=== PATIENT | female | born 1985 ===

== ENCOUNTER 2017-03-19 20:57 | Inpatient (IN) | payer OTHER ==
[~2017-03-19] VITALS: Ht 165.1 cm; Wt 53.5 kg
[~2017-03-19 20:57] MED LIST: ALLA20GE TP; Bupropion Hcl PO; IBUP-1953 PO; NORE1TAB93 PO; Sertraline Hcl PO; TRAZ-147 PO
[2017-03-19] MEDS ORDERED: SERT100T PO (21:56)
[2017-03-19] MEDS ORDERED: BUPR100T5 PO (21:56)
[2017-03-19] MEDS ORDERED: TRAZ-147 PO (21:56)
[2017-03-19] MEDS ORDERED: MAG HYDROX/AL HYDROX/SIMETH 30 ML LIQUID UDC PO PRN (22:00)
[2017-03-19] MEDS ORDERED: ACETAMINOPHEN 325 MG TABLET PO PRN (22:00)
[2017-03-19] MEDS ORDERED: LOPERAMIDE HCL 2 MG CAPSULE PO PRN ×2 (22:00)
[2017-03-19] MEDS ORDERED: METHOCARBAMOL 750 MG TABLET PO PRN (22:00)
[2017-03-19] MEDS ORDERED: ONDANSETRON 4 MG/2 ML VIAL IM PRN (22:00)
[2017-03-19] MEDS ORDERED: DICYCLOMINE HCL 20 MG TABLET PO PRN (22:00)
[2017-03-19] MEDS ORDERED: LORAZEPAM 1 MG TABLET PO PRN (22:00)
[2017-03-19] MEDS ORDERED: LORAZEPAM 2 MG/1 ML VIAL IM PRN (22:00)
[2017-03-19] MEDS ORDERED: MIRALAX 17 GM POWD.PACK PO PRN (22:00)
[2017-03-19] MEDS ORDERED: diphenhydrAMINE 50 MG CAPSULE PO PRN (22:00)
[2017-03-19] MEDS ORDERED: DOCUSATE SODIUM 250 MG CAPSULE PO PRN (22:00)
[2017-03-19] MEDS ORDERED: ONDANSETRON ODT 4 MG TAB.RAPDIS SL PRN (22:00)
[2017-03-19] MEDS ORDERED: BUPRENORPHINE HCL 2 MG TAB.SUBL SL PRN (22:00)
[2017-03-19] MEDS ORDERED: CLONIDINE HCL 0.1 MG TABLET PO PRN (22:00)
[2017-03-19] MEDS ORDERED: MAGNESIUM HYDROXIDE 30 ML LIQUID UDC PO PRN (22:00)
[2017-03-19 22:02] LABS: *URINE HCG, QUAL NEGATIVE (NEGATIVE)
[2017-03-19 22:13] LABS: *AMPHETAMINE, URINE POSITIVE (NEGATIVE); *BARBITURATE, URINE POSITIVE (NEGATIVE); *CANNABINOID, URINE NEGATIVE (NEGATIVE); *COCCAINE, URINE NEGATIVE (NEGATIVE); *OPIATE, URINE POSITIVE (NEGATIVE); *PHENCYCLIDINE SCREEN,URINE NEGATIVE (NEGATIVE)
[2017-03-19] MEDS ORDERED: LORAZEPAM 1 MG TABLET PO SCH (23:00)
[2017-03-19 23:21] LABS: BASOPHILS % (AUTO) 0.3 % (0.0-2.0); EOSINOPHILS # (AUTO) 0.1 K/uL (0.0-0.7); HEMATOCRIT 36.2 % (31.2-41.9); HEMOGLOBIN 12.5 g/dL (10.9-14.3); LYMPHOCYTES # (AUTO) 2.4 K/uL (20.0-40.0); LYMPHOCYTES % (AUTO) 33.3 % (20.5-51.5); MEAN CORPUSCULAR HEMOGLOBIN 31.3 uug (24.7-32.8); MEAN CORPUSCULAR HGB CONC 35 g/dL (32.3-35.6); MEAN CORPUSCULAR VOLUME 90.4 fL (75.5-95.3); MONOCYTES % (AUTO) 13.2 % (0.0-11.0); NEUTROPHILS # (AUTO) 3.7 K/uL (1.8-8.9); NEUTROPHILS % (AUTO) 51.2 % (38.5-71.5); PLATELET COUNT (AUTO) 281 K/uL (179-408); WHITE BLOOD COUNT (AUTO) 7.2 K/uL (3.8-11.8)
[2017-03-19 23:30] LABS: ETHANOL < 3 MG/DL (0-0)
[2017-03-19 23:33] LABS: ALANINE AMINOTRANSFERASE 33 U/L (14-59); ALKALINE PHOSPHATASE 83 U/L (50-136); ASPARTATE AMINOTRANSFERASE 28 U/L (15-37); BILIRUBIN,TOTAL 0.2 mg/dL (0.2-1.0); CARBON DIOXIDE 26 mmol/L (21-32); CHLORIDE 98 mmol/L (98-107); CREATININE 0.8 mg/dL (0.6-1.3); GLUCOSE 92 mg/dL (74-106); MAGNESIUM 1.9 mg/dL (1.8-2.4); POTASSIUM 3.7 mmol/L (3.5-5.1); TOTAL PROTEIN, SERUM 7.8 g/dL (6.4-8.2); UREA NITROGEN, BLOOD 11 mg/dL (7-18)
[2017-03-19] MEDS ORDERED: LORAZEPAM 1 MG TABLET ONE (23:40)
[2017-03-20] VITALS: BP 120/76
[2017-03-20] MEDS ORDERED: NEOM14.216 TP (00:32)
[2017-03-20] MEDS ORDERED: SULF1TAB48 PO (00:32)
[2017-03-20] MEDS: IBUPROFEN 600 MG TABLET PO PRN (00:56)
[2017-03-20] MEDS: LORAZEPAM 1 MG TABLET PO PRN ×3 (00:57→05:24)
[2017-03-20] MEDS ORDERED: LORAZEPAM 1 MG TABLET ONE ×3 (01:09→05:34)
[2017-03-20] MEDS ORDERED: IBUPROFEN 600 MG TABLET ONE (01:09)
[2017-03-20] MEDS ORDERED: diphenhydrAMINE 50 MG CAPSULE ONE (01:09)
[2017-03-20] MEDS ORDERED: CLONIDINE HCL 0.1 MG TABLET ONE (03:07)
[2017-03-20] MEDS ORDERED: BUPRENORPHINE HCL 2 MG TAB.SUBL SL ONE (03:08)
[2017-03-20 04:00] VITALS: BP 114/75
[2017-03-20] MEDS ORDERED: METHOCARBAMOL 750 MG TABLET ONE (05:34)
[2017-03-20] MEDS ORDERED: DIVALPROEX 500 MG TABLET.DR PO ONE (06:45)
[2017-03-20] MEDS ORDERED: OLANZAPINE ZYDIS 5 MG TAB.RAPDIS PO ONE (06:45)
[2017-03-20] MEDS ORDERED: OLANZAPINE ZYDIS 5 MG TAB.RAPDIS ONE (06:59)
[2017-03-20] MEDS: BUPRENORPHINE HCL 2 MG TAB.SUBL SL SCH ×3 (08:14→21:00)
[2017-03-20 09:00] VITALS: BP 132/79
[2017-03-20] MEDS ORDERED: GABAPENTIN 300 MG CAPSULE PO SCH (09:00)
[2017-03-20] MEDS ORDERED: diphenhydrAMINE 50 MG/1 ML VIAL IM ONE (09:00)
[2017-03-20] MEDS ORDERED: TUBERCULIN,PURIF.PROT.DERIV. 5 TU/0.1 ML TEST ID ONE (09:00)
[2017-03-20] MEDS ORDERED: HALOPERIDOL LACTATE 5 MG/1 ML VIAL IM ONE (09:00)
[2017-03-20] MEDS ORDERED: INFLUENZA VACCINE 2017-2018 0.5 ML DISP.SYRIN IM ONE (10:00)
[2017-03-20] MEDS ORDERED: PNEUMOCOCCAL 23-VAL P-SAC VAC 0.5 ML VIAL IM ONE (10:00)
[2017-03-20] MEDS: GABAPENTIN 300 MG CAPSULE PO SCH ×2 (15:00→21:00)
[2017-03-20] MEDS ORDERED: TRAZODONE 100 MG TABLET PO PRN (17:00)
[2017-03-20] MEDS ORDERED: CLONIDINE HCL 0.1 MG TABLET PO SCH (21:00)
[2017-03-20] MEDS ORDERED: LORAZEPAM 1 MG TABLET PO SCH (21:00)
[2017-03-21] VITALS (8 sets, daily range): BP systolic 89–120; BP diastolic 52–74
[2017-03-21] MEDS: LORAZEPAM 1 MG TABLET PO SCH ×3 (08:49→21:20)
[2017-03-21] MEDS: GABAPENTIN 300 MG CAPSULE PO SCH ×2 (08:49→14:34)
[2017-03-21] MEDS ORDERED: PATIENT MAY USE OWN MED- MD OK PO SCH (09:00)
[2017-03-21] MEDS ORDERED: HYDROXYZINE PAMOATE 25 MG CAPSULE PO PRN (09:00)
[2017-03-21] MEDS ORDERED: BUPRENORPHINE HCL 2 MG TAB.SUBL SL SCH (09:00)
[2017-03-21 10:12] LABS: HEPATITIS B SURFACE AG Negative (Negative)
[2017-03-21] MEDS: BUPRENORPHINE HCL 2 MG TAB.SUBL SL SCH ×2 (14:37→21:19)
[2017-03-21] MEDS: buPROPion XL 150 MG TAB.SR.24H PO SCH (15:35)
[2017-03-21] MEDS: SERTRALINE HCL 100 MG TABLET PO SCH (15:35)
[2017-03-21] MEDS ORDERED: GABAPENTIN 300 MG CAPSULE PO SCH (21:00)
[2017-03-21] MEDS: CLONIDINE HCL 0.1 MG TABLET PO SCH (21:20)
[2017-03-22] VITALS (7 sets, daily range): BP systolic 91–114; BP diastolic 52–74
[2017-03-22] MEDS: GABAPENTIN 300 MG CAPSULE PO SCH ×3 (09:00→21:12)
[2017-03-22] MEDS: IBUPROFEN 600 MG TABLET PO PRN ×2 (09:48→21:19)
[2017-03-22] MEDS: buPROPion XL 150 MG TAB.SR.24H PO SCH (09:48)
[2017-03-22] MEDS: BUPRENORPHINE HCL 2 MG TAB.SUBL SL SCH ×3 (09:48→21:12)
[2017-03-22] MEDS: LORAZEPAM 1 MG TABLET PO SCH ×3 (09:48→21:12)
[2017-03-22] MEDS: CLONIDINE HCL 0.1 MG TABLET PO SCH ×2 (09:49→21:11)
[2017-03-22] MEDS: SERTRALINE HCL 100 MG TABLET PO SCH (09:49)
[2017-03-23 04:00] VITALS: BP 108/72
[2017-03-23 08:00] VITALS: BP 96/59
[2017-03-23] MEDS: SERTRALINE HCL 100 MG TABLET PO SCH (08:37)
[2017-03-23] MEDS: buPROPion XL 150 MG TAB.SR.24H PO SCH (08:37)
[2017-03-23] MEDS: CLONIDINE HCL 0.1 MG TABLET PO SCH ×3 (08:41→20:51)
[2017-03-23] MEDS ORDERED: LORAZEPAM 1 MG TABLET PO SCH (09:00)
[2017-03-23] MEDS: GABAPENTIN 300 MG CAPSULE PO SCH ×3 (09:00→21:00)
[2017-03-23] MEDS ORDERED: BUPRENORPHINE HCL 2 MG TAB.SUBL SL SCH (09:00)
[2017-03-23 12:00] VITALS: BP 106/56
[2017-03-23] MEDS ORDERED: CLON0.1T14 PO (14:54)
[2017-03-23] MEDS ORDERED: DICY20TA28 PO (14:54)
[2017-03-23] MEDS ORDERED: GABA-534 PO (14:54)
[2017-03-23] MEDS ORDERED: METH-406 PO (14:54)
[2017-03-23] MEDS ORDERED: IBUP-1955 PO (14:54)
[2017-03-23] MEDS ORDERED: HYDR-3895 PO (14:54)
[2017-03-23 16:00] VITALS: BP 98/48
[2017-03-23 20:00] VITALS: BP 119/83
[2017-03-23] MEDS: IBUPROFEN 600 MG TABLET PO PRN (20:50)
[2017-03-24 04:00] VITALS: BP 98/56
[2017-03-24 08:00] VITALS: BP 101/70
[2017-03-24 08:30] VITALS: BP 101/70
[2017-03-24] MEDS: GABAPENTIN 300 MG CAPSULE PO SCH (08:30)
[2017-03-24] MEDS: SERTRALINE HCL 100 MG TABLET PO SCH (08:30)
[2017-03-24] MEDS: buPROPion XL 150 MG TAB.SR.24H PO SCH (08:30)
[2017-03-24] MEDS: CLONIDINE HCL 0.1 MG TABLET PO SCH (08:30)
== END 2017-03-24 09:37 | disposition other institution (70) | DRG 895 ==
LOC: SRC 20:57
PROVIDERS: ADMIT Internal Medicine; ATTEND Internal Medicine
PROC: HZ2ZZZZ Detoxification Services for Substance Abuse Treatment (ICD-10-PCS; principal; 2017-03-19)
PROC: HZ31ZZZ Individual Counseling for Substance Abuse Treatment, Behavioral (ICD-10-PCS; 2017-03-21)
DX: F11.23 Opioid dependence with withdrawal (principal); Z86.74 Personal history of sudden cardiac arrest; F23 Brief psychotic disorder; Z81.1 Family history of alcohol abuse and dependence; Z82.49 Family history of ischemic heart disease and other diseases of the circulatory system; Z91.89 Other specified personal risk factors, not elsewhere classified; F13.239 Sedative, hypnotic or anxiolytic dependence with withdrawal, unspecified; Z88.0 Allergy status to penicillin; Z79.899 Other long term (current) drug therapy; Z59.0 Homelessness; G47.00 Insomnia, unspecified; F41.9 Anxiety disorder, unspecified; Z59.1 Inadequate housing; R01.1 Cardiac murmur, unspecified; F17.210 Nicotine dependence, cigarettes, uncomplicated; F15.10 Other stimulant abuse, uncomplicated; F32.9 Major depressive disorder, single episode, unspecified
CPT/HCPCS: 36415; 80307; 80324; 80345; 80361; 83735; 84703; 85025; 86592; 86705; 86803; 87340; 87806; A4663; G0480; J1200; J1630; Q0163

== ENCOUNTER 2017-07-19 17:17 | Emergency (ER) | payer OTHER ==
[~2017-07-19] VITALS: Ht 165.1 cm; Wt 54.4 kg
[~2017-07-19 17:17] MED LIST changes: -ALLA20GE TP; +BUPR100T5 PO; -Bupropion Hcl PO; +CLON0.1T14 PO; +DICY20TA28 PO; +GABA-534 PO; +HYDR-3895 PO; -IBUP-1953 PO; +IBUP-1955 PO; +METH-406 PO; +SERT100T PO; -Sertraline Hcl PO
--- NOTE | 2017-07-19 17:34 | NUR ---
Dr Stephens at the bedside for MSE.
[2017-07-19 17:39] LABS: *BILIRUBIN,URIN NEGATIVE (NEGATIVE); *BLOOD, URINE NEGATIVE (NEGATIVE); *CLARITY,URINE HAZY (CLEAR); *COLOR,URINE YELLOW (YELLOW); *KETONES,URINE NEGATIVE (NEGATIVE); *PROTEIN,URINE NEGATIVE (NEGATIVE); *UROBILINOGEN,URINE 0.2 E.U./dl (NORMAL); LEUKOCYTE ESTERASE ,URINE 1+ (NEGATIVE); NITRITE, URINE NEGATIVE (NEGATIVE); UGLUCOSE NEGATIVE (NEGATIVE)
[2017-07-19 17:41] LABS: *URINE HCG, QUAL NEGATIVE (NEGATIVE)
[2017-07-19 17:44] LABS: BACTERIA,URINE FEW /HPF (NONE SEEN); MUCUS,URINE FEW /LPF (0-FEW); RBC,URINE 0-3 /HPF (0-3); SQUAMOUS EPITHELIAL CELL,UR MODERATE /HPF (NONE SEEN); WBC,URINE 50-80 /HPF (0-3)
[2017-07-19] MEDS ORDERED: CEFTRIAXONE 500 MG VIAL ONE (17:45)
[2017-07-19] MEDS ORDERED: AZITHROMYCIN 250 MG TABLET ONE (17:45)
[2017-07-19] MEDS: AZITHROMYCIN 250 MG TABLET PO ONE (17:47)
[2017-07-19] MEDS: CEFTRIAXONE 500 MG VIAL IM ONE (17:47)
--- NOTE | 2017-07-19 17:52 | NUR ---
Patient discharged to home in stable conditon. Written and verbal after care instructions given. Patient verbalizes understanding of instructions.
[2017-07-19 17:55] VITALS: BP 103/68
== END 2017-07-19 17:55 | disposition home or self-care (01) ==
LOC: ER 17:18
DX: N39.0 Urinary tract infection, site not specified (principal); Z88.1 Allergy status to other antibiotic agents; Z79.1 Long term (current) use of non-steroidal anti-inflammatories (NSAID); Z79.891 Long term (current) use of opiate analgesic; Z79.899 Other long term (current) drug therapy
CPT/HCPCS: 81001; 84703; 87086; 96372; 99284; A4663; J0696; Q0144

== ENCOUNTER 2017-11-07 15:25 | Inpatient (IN) | payer OTHER ==
[~2017-11-07] VITALS: Ht 165.1 cm; Wt 54.0 kg
[~2017-11-07 15:25] MED LIST changes: -TRAZ-147 PO; +TRAZ-214 PO
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
[2017-11-07] MEDS ORDERED: MAGNESIUM HYDROXIDE 30 ML LIQUID UDC PO PRN (23:30)
[2017-11-07] MEDS ORDERED: DICYCLOMINE HCL 20 MG TABLET PO PRN (23:30)
[2017-11-07] MEDS ORDERED: MAG HYDROX/AL HYDROX/SIMETH 30 ML LIQUID UDC PO PRN (23:30)
[2017-11-07] MEDS ORDERED: BUPRENORPHINE HCL 2 MG TAB.SUBL SL PRN (23:30)
[2017-11-07] MEDS ORDERED: LOPERAMIDE HCL 2 MG CAPSULE PO PRN ×2 (23:30)
[2017-11-07] MEDS ORDERED: diphenhydrAMINE 50 MG CAPSULE PO PRN (23:30)
[2017-11-08 01:23] LABS: BASOPHILS # (AUTO) 0.1 K/uL (0.0-8.0); EOSINOPHILS # (AUTO) 0.8 K/uL (0.0-0.7); EOSINOPHILS % (AUTO) 12.1 % (0.0-7.0); HEMATOCRIT 32.2 % (31.2-41.9); HEMOGLOBIN 11.4 g/dL (10.9-14.3); LYMPHOCYTES # (AUTO) 2.5 K/uL (20.0-40.0); LYMPHOCYTES % (AUTO) 38.4 % (20.5-51.5); MEAN CORPUSCULAR HEMOGLOBIN 31.8 uug (24.7-32.8); MEAN CORPUSCULAR HGB CONC 35 g/dL (32.3-35.6); MEAN CORPUSCULAR VOLUME 89.8 fL (75.5-95.3); MONOCYTES # (AUTO) 0.6 K/uL (2.0-10.0); MONOCYTES % (AUTO) 9.9 % (0.0-11.0); NEUTROPHILS # (AUTO) 2.5 K/uL (1.8-8.9); NEUTROPHILS % (AUTO) 38.6 % (38.5-71.5); PLATELET COUNT (AUTO) 272 K/uL (179-408); RED BLOOD CELL COUNT(AUTO) 3.58 MIL/uL (3.63-4.92); WHITE BLOOD COUNT (AUTO) 6.4 K/uL (3.8-11.8)
[2017-11-08 01:28] LABS: ETHANOL < 3 MG/DL (0-0)
[2017-11-08 01:30] LABS: ALANINE AMINOTRANSFERASE 67 U/L (14-59); ALKALINE PHOSPHATASE 96 U/L (50-136); ASPARTATE AMINOTRANSFERASE 48 U/L (15-37); BILIRUBIN,TOTAL 0.3 mg/dL (0.2-1.0); CARBON DIOXIDE 26 mmol/L (21-32); CHLORIDE 100 mmol/L (98-107); CREATININE 0.7 mg/dL (0.6-1.3); GLUCOSE 98 mg/dL (74-106); MAGNESIUM 1.8 mg/dL (1.8-2.4); POTASSIUM 4.1 mmol/L (3.5-5.1); TOTAL PROTEIN, SERUM 7.6 g/dL (6.4-8.2); UREA NITROGEN, BLOOD 6 mg/dL (7-18)
[2017-11-08 01:36] LABS: *URINE HCG, QUAL NEGATIVE (NEGATIVE)
[2017-11-08 01:41] LABS: *AMPHETAMINE, URINE POSITIVE (NEGATIVE); *BARBITURATE, URINE NEGATIVE (NEGATIVE); *CANNABINOID, URINE NEGATIVE (NEGATIVE); *COCCAINE, URINE NEGATIVE (NEGATIVE); *OPIATE, URINE POSITIVE (NEGATIVE); *PHENCYCLIDINE SCREEN,URINE NEGATIVE (NEGATIVE)
[2017-11-08] MEDS: HYDROXYZINE PAMOATE 25 MG CAPSULE PO PRN ×2 (02:02→13:22)
[2017-11-08] MEDS: METHOCARBAMOL 750 MG TABLET PO PRN ×2 (02:03→12:19)
--- NOTE | 2017-11-08 02:03 | NUR ---
PRN Robaxin, Benadryl and Vistaril administration Patient anxious, restless, c/o muscle aches and intermittent perspiration. Patient requests for sleep aid.
--- NOTE | 2017-11-08 03:03 | NUR ---
PRN Robaxin, Vistaril and Benadryl re-assessment Patient lying in bed with eyes closed. Respiration even and unlabored. No facial grimacing. Will continue to monitor.
[2017-11-08 04:00] VITALS: BP 100/62
--- NOTE | 2017-11-08 04:00 | NUR ---
COWS and CIWA deferred Patient lying in bed with eyes closed. Respiration even and unlabored. Will continue to monitor.
[2017-11-08 04:59] LABS: THYROID STIMULATING HORMONE 1.659 mIU/mL (0.358-3.740)
--- NOTE | 2017-11-08 07:23 | NUR ---
End of shift note Patient slept 4 hours. Fluid intake 1,029 ml. Voided x 2. No BM. Patient was given PRN Robaxin for muscle aches, Vistaril for Anxiety and Benadryl for sleep. Safety measures in place. Call light in reach. Will continue to monitor.
--- NOTE | 2017-11-08 07:30 | NUR ---
Start Of Shift Report received from second shift supervisor nurse. Patient is a 32-year old female admitted to [facility] for medically supervised withdrawal from Opiates and Benzodiazepines. Pt is placed on a Phenobarbital taper . Upon start of shift pt noted laying in her bed with her eyes closed resting, breathing even and unlabored. Pt's room appears unorganized and messy, pt has clothes thrown around the room, with empty bottles and candy wraps around the room, pt is odorous and disheveled . Pt appears anxious, sweaty and flushed. During assessment, pt is AOx4. Lung sounds clear bilaterally. Radial pulse is regular and non-bounding. Abdomen soft and non-tender. Pt's skin is warm and intact. Pt denies any pain at the moment. Encouraged pt to drink plenty of fluids to keep hydrated and help the detox process. Bed in lowest position. Pt c/o being anxious, stating I NEED MY MEDICATION NOW I AM NOT FEELING GOOD Pt got PRN Robaxin Benadryl and Vistaril last night which was effective per second shift supervisor nurse. Side rails up x2. Call light functioning and within reach. All needs attended and met. Will continue to monitor.
[2017-11-08 08:00] VITALS: BP 108/65
[2017-11-08] MEDS: PHENOBARBITAL 60 MG TABLET PO SCH ×4 (09:00→20:35)
[2017-11-08] MEDS ORDERED: TUBERCULIN,PURIF.PROT.DERIV. 5 TU/0.1 ML TEST ID ONE (09:00)
[2017-11-08] MEDS: MULTIVITAMINS,THERAPEUTIC TABLET PO SCH (09:00)
[2017-11-08 12:00] VITALS: BP 125/76
[2017-11-08] MEDS: LORAZEPAM 1 MG TABLET PO PRN ×2 (13:22→22:36)
--- NOTE | 2017-11-08 13:22 | NUR ---
PRN MEDICATION Pt c/o anxiety and chills presented with agitation sweats and tremors, upon assessment pt had a CIWA score of 17 and a COWS score of 10 pt also c/o pain all over the body, PRN Motrin 600mg PO, Ativan 2mg PO, Vistaril 50mg PO and Clonidine 0.1mg PO administered, all needs met will continue to monitor.
[2017-11-08] MEDS: CLONIDINE HCL 0.1 MG TABLET PO PRN ×2 (13:23→20:35)
[2017-11-08] MEDS: IBUPROFEN 600 MG TABLET PO PRN ×2 (13:28→22:41)
--- NOTE | 2017-11-08 14:22 | NUR ---
PRN REASSESSMENT Medication was effective evidenced by pt laying in bed with eyes closed even non-labored breathing. All needs met will continue to monitor.
[2017-11-08] MEDS ORDERED: QUETIAPINE FUMARATE 25 MG TABLET PO PRN (15:45)
[2017-11-08 16:00] VITALS: BP 124/73
--- NOTE | 2017-11-08 19:30 | NUR ---
START OF SHIFT Pt is a 32 y/o female admitted on 11/07/17 for opiates and benzo withdrawal. Pt placed on a 6 day Phenobarbital taper, tolerating well. Last CIWA 13 COWS 9. PRN Clonidine 0.1mg Ativan 2mg Vistaril 50mg and Motrin 600mg were administered during day shift. Upon assessment Pt was found laying in bed with eyes closed, respirations even and unlabored. Medications due. Safety measures in place. Call light within reach. Will continue to monitor.
--- NOTE | 2017-11-08 19:41 | NUR ---
End of shift Report given to hotel night auditor nurse plan of care followed vital signs monitored closely Q4H. Withdrawal symptoms were closely monitored, medication given as scheduled. Initial CIWA 12 COWS 7. Pt encouraged adequate PO fluid intake as tolerated. Pt presented with sweats, flushed face, anxiety some agitation and yawning during the day. Pt received her scheduled taper medication as ordered. Pt received PRN Clonidine Ativan 2mg Vistaril 50mg and Motrin 600mg for anxiety and general body aches medication was effective. Last CIWA 13 COWS 9. Pt reported that her taper medications have been working well at controlling her withdrawal symptoms. Pt ate all of her meals, pt attended all groups and activities to learn new coping skills to prevent relapse. Pt denied any SI/HI. All safety measures in place, bed in lowest locked position, call light within reach. All needs met and attended.
[2017-11-08 20:00] VITALS: BP 110/65
--- NOTE | 2017-11-08 20:00 | NUR ---
CLIFWA 13 COWS 11 Pt presents with anxiety, agitation, general body pain, stuffy, nose, headache, tremors, restlessness, and flushed and clammy skin.Safety measures in place. Call light within reach. Will continue to monitor.
--- NOTE | 2017-11-08 20:35 | NUR ---
PRN CLONIDINE ADMINISTRATION Pt complains of increased agitation and anxiety. PRN Clonidine was administered per order. Safety measures in place. Call light within reach. Will continue to monitor.
--- NOTE | 2017-11-08 21:35 | NUR ---
PRN CLONIDINE REASSESSMENT Pt found in bed with eyes closed. Pt's respirations even and unlabored. Medication noted effective. Safety measures in place. Call light within reach. Will continue to monitor.
[2017-11-08] MEDS: TRAZODONE 100 MG TABLET PO SCH (22:38)
--- NOTE | 2017-11-08 22:38 | NUR ---
SCHEDULED TRAZODONE ADMINISTRATION Pt requested scheduled Trazodone to be given at this time. Pt refused medication at 2100. Pt stated, " Its to early to take this medication, come back later." Safety measures in place. Call light within reach. Will continue to monitor.
--- NOTE | 2017-11-08 22:41 | NUR ---
PRN ATIVAN 2 MG PO AND MOTRIN ADMINISTRATION Pt complains of increased anxiety, agitation, restlessness, and generalized body pain. PRN medication administered per order. Safety measures in place. Call light within reach. Will continue to monitor.
--- NOTE | 2017-11-08 23:41 | NUR ---
PRN ATIVAN 2 MG PO AND MOTRIN REASSESSMENT Pt found in bed with eyes closed. Respiration even and unlabored. Medication noted effective with withdrawal S/S. Safety measures in place. Call light within reach. Will continue to monitor.
--- NOTE | 2017-11-09 | NUR ---
COWS/CIWA DEFERRED AND VITAL SIGNS REFUSED Patient is noted in bed with eyes closed. Breathing even and non labored. COWS/CIWA and vital signs not able to be completed per order. Safety measures in place. Call light within reach. Will continue to monitor.
--- NOTE | 2017-11-09 07:31 | NUR ---
END OF SHIFT Pt is a 32 y/o female admitted on 11/07/17 for opiates and benzo withdrawal. Pt placed on a 6 day Phenobarbital taper, tolerating well. Pt presented with anxiety, agitation, restlessness, lethargic, slumped posture, isolative, and withdrawn. PRN Ativan, Clonidine, and Motrin was administered, effective with S/S of withdrawal SAMSON Pt sleeping 9 hours. Last CIWA 13 COWS 11. Pt slept 9 hours. Intake 8654 ml, void x 2, stool x 0. Safety measures in place. Call light within reach. Pts needs have been met. Endorsed to day shift.
--- NOTE | 2017-11-09 07:35 | NUR ---
START OF SHIFT Pt is a 32 yr old female, admitted on 11/07/17 fr Benzo/Opiate withdrawal and is on 6 day Phenobarbital taper as ordered. Received report from lieutenant shift supervisor nurse. Pt received Ativan PRN, Clonidine PRN and Motrin PRN during the night. Medication was effective. last CIWA score 13 and COWS score was 11. Pt slept for 9 hrs and remains in bed sleeping with respirations even and unlabored. Skin is intact, warm and clammy to touch. Pt's room is noted with multiple open food wrappers and open bottles of fluid at bedside table. Pt is on fall and seizures precautions. Call light is within reach. Will continue to monitor.
[2017-11-09 08:00] VITALS: BP 92/61
--- NOTE | 2017-11-09 08:00 | NUR ---
COWS AND CIWA ASSESSMENT DEFERRED Pt is in bed sleeping with respirations even and unlabored. RR is 14. VS are 92/61, P 72, and O2 100%. Pt is noted with restless legs. Artificial Flowers Supervisor attempted to wake up pt but she was unable to wake up. Skin is warm and clammy to touch. Safety precautions observed. will continue to monitor.
[2017-11-09] MEDS: MULTIVITAMINS,THERAPEUTIC TABLET PO SCH (10:00)
[2017-11-09] MEDS: SERTRALINE HCL 100 MG TABLET PO SCH ×2 (10:00→11:13)
[2017-11-09] MEDS: PHENOBARBITAL 60 MG TABLET PO SCH ×4 (10:00→22:00)
--- NOTE | 2017-11-09 10:00 | NUR ---
MEDICATION HELD Phenobarbital 60mg PO, Zoloft 100mg PO and a Multivitamin 1 tab as scheduled at 0900 was held due to pt is too sedated. Rotor Blade Installer attempted several time to wake up the pt but she was unable to wake up. RR is 14. Pt is noted with restless legs. Skin is warm and clammy to touch. MD was made aware. Safety precautions observed. Will continue to monitor.
[2017-11-09 11:06] LABS: HEPATITIS B SURFACE AG Negative (Negative)
--- NOTE | 2017-11-09 11:15 | NUR ---
MD COMMUNICATION Pt woke up at this time stating, "Can I have my meds". Phenobarbital 60mg PO and Zoloft 100mg PO as scheduled at 0900 was held due to Pt was too sedated. Report to Dr. Nelson, Per Dr. Omar luther to late administer Phenobarbital 60mg and Zoloft 100mg PO as ordered. Medication was administered and manuel well. Encouraged increase fluid intake. Will continue to monitor.
[2017-11-09 12:10] VITALS: BP 94/55
--- NOTE | 2017-11-09 15:00 | NUR ---
COMMUNICATION pt was seen and examined by Dr. Nelson. Received new order for 4 day Subutex taper starting today on 11/09/17. New order was noted and carried out. Last COWS score was 10 and CIWA score was 11 at 1245. Will continue to monitor.
[2017-11-09] MEDS ORDERED: 4 DAY TAPER BUPRENORPHINE -SERENITY PROTOCOL SL PRN (15:15)
[2017-11-09] MEDS: TOPIRAMATE 25 MG TABLET PO SCH ×2 (16:03→22:00)
[2017-11-09] MEDS: BUPRENORPHINE HCL 2 MG TAB.SUBL SL SCH ×2 (16:03→22:00)
[2017-11-09 16:10] VITALS: BP 104/60
[2017-11-09] MEDS ORDERED: METRONIDAZOLE 500 MG TABLET PO ONE (18:45)
[2017-11-09 20:15] VITALS: BP 89/49
--- NOTE | 2017-11-09 20:16 | NUR ---
CIWA AND COWS ASSESSMENT DEFERRED Pt is currently in bed sleeping with respirations even and unlabored. RR is 16. COWS/CIWA assessment is deferred at this time. Will continue to monitor.
[2017-11-09] MEDS: TRAZODONE 100 MG TABLET PO SCH (22:00)
[2017-11-09] MEDS: PRAZOSIN HCL 1 MG CAPSULE PO SCH (22:00)
--- NOTE | 2017-11-09 22:28 | NUR ---
MEDICATION HELD Phenobarbital 60mg PO, Subutex 4mg SL, Topamax 50mg PO, Minipress 1mg PO and Trazodone 100mg PO as scheduled at 2100 was held due to pt was too sedated. Moving Consultant attempted several times to wake up pt, pt was arousable to name and touch but still was unable to be woken up. RR is 16. Skin is warm and clammy to touch. Safety precautions observed. Will continue to monitor.
[2017-11-10] VITALS: BP 98/67
--- NOTE | 2017-11-10 | NUR ---
CIWA/COWS and VITAL SIGN ASSESSMENT DEFERRED Pt is currently in bed sleeping with respirations even and unlabored. RR is 14. COWS/CIWA assessment is deferred at this time. Safety precautions observed. Will continue to monitor.
--- NOTE | 2017-11-10 00:12 | NUR ---
END OF SHIFT Pt is a 32 female, AA&Ox3. Pt was admitted on 11/07/17 for Benzo/Opiate withdrawal and is on 6 day Phenobarbital taper and 4 day Subutex taper as ordered. Pt has been observed with increase fatigue and drowsiness and remained in bed throughout the day. While awake, Pt would c/o anxiety, agitation, muscle aches, stuffy nose, sweats, chills and headache. No PRNs were given during the day. Pt did received Flagyl 2000mg one time for yeast infection. Medication manuel well. Pt was encouraged increase fluid intake for hydration. All scheduled 2100 medications was held due to pt was too sedated. Last COWS score was 8 and CIWA score was 9 at 1611. Safety precautions observed. Endorsed to RN nurse to continue with care.
--- NOTE | 2017-11-10 00:13 | NUR ---
START OF SHIFT Pt is a 32 y/o female admitted on 11/07/17 for benzo and opiate withdrawal. Pt was also using methamphetamine. Pt is on a 6 day Phenobarbital and 4 day Subutex taper, tolerating well. Last CIWA COWS 8 and CIWA 9 at 1600. 2100 COWS and CIWA deferred and 2100 scheduled medications non-administered d/t pt sleeping. Upon assessment pt sleeping. Endorsement from day shift nurse at 0012. Safety measures in place. Will continue to monitor.
[2017-11-10] MEDS: IBUPROFEN 600 MG TABLET PO PRN ×3 (00:58→22:10)
--- NOTE | 2017-11-10 00:58 | NUR ---
PHENOBARBITAL 60 MG X 1, SUBUTEX 4 MG X 1 AND MOTRIN ADMINISTRATION Pt woke up and stated, "I feel like shit. I need meds." COWS 18 and CIWA 21. One time orders for Phenobarbital and Subutex administered. 2100 meds held d/t pt sleeping. Pt presents with anxiety, agitation, dilated pupils, goosebumps, body aches 8/10, stomach cramps, stuffy nose, increased HR, hot and cold sweats, chills, headache, sensitivity to light, sensitivity to sounds, and pins and needles sensations in all extremities. Pt refused Bentyl and Robaxin. Pt stated, "Robaxin gives me bad constipation." Safety measures in place. Call light within reach. Will continue to monitor.
[2017-11-10] MEDS ORDERED: PHENOBARBITAL 60 MG TABLET PO ONE (01:00)
[2017-11-10] MEDS ORDERED: BUPRENORPHINE HCL 2 MG TAB.SUBL SL ONE (01:00)
--- NOTE | 2017-11-10 01:58 | NUR ---
PRN PHENOBARBITAL, SUBUTEX, AND MOTRIN REASSESSMENT Pt laying in bed with eyes closed, medications noted effective. Respirations even and unlabored. Safety measures in place. Call light within reach. Will continue to monitor.
--- NOTE | 2017-11-10 04:00 | NUR ---
COWS/CIWA DEFERRED AND VITALS REFUSED Pt laying in bed with eyes closed, COWS/CIWA deferred, to be assessed when pt is awake per orders. Vitals refused. Respirations even and unlabored. Safety measures in place. Call light within reach. Will continue to monitor.
[2017-11-10 06:30] VITALS: BP 101/68
--- NOTE | 2017-11-10 07:30 | NUR ---
END OF SHIFT Pt is a 32 y/o female admitted on 11/07/17 for benzo and opiate withdrawal. Pt was also using methamphetamine. Pt is on a 6 day Phenobarbital and 4 day Subutex taper, tolerating well. Pt woke up agitated about not getting her scheduled medications. Pt was not administered her 2100 dose d/t sleeping and woke up near 0100. Pt presented with anxiety, agitation, dilated pupils, goosebumps, body aches 8/10, stomach cramps, stuffy nose, increased HR, hot and cold sweats, chills, headache, sensitivity to light, sensitivity to sounds, difficulty staying asleep, disheveled appearance, unkempt room, and pins and needles sensations in all extremities. COWS 18 and CIWA 21 and was ordered Phenobarbital 60 mg x 1 and Subutex 4 mg x 1. PRN Motrin administered for headache. Pt refused Bentyl and Robaxin. Last COWS 18 and CIWA 21. Pt slept 8 hours. Intake 2892 ml, void x 4, stool x 0. Safety measures in place. Call light within reach. Pts needs have been met. Endorsed to day shift nurse.
--- NOTE | 2017-11-10 07:30 | NUR ---
Start Of Shift: Patient is a 32 yr old female who was admitted to [facility] on 11/07/17 for a medically supervised withdrawal from Benzodiazepines ( Xanax, Valium, Klonopin) and Opiates ( Heroin IV and Fentanyl IV) also abused amphetamines and Cocaine, she has been placed on a 6 day Phenobarbital and 4 day Subutex taper. PRN Motrin was given on PM shift, her last COWS was 18 and CIWA 21 and she slept for 8 hours. She is in bed asleep at this time, breathing even and unlabored, side rails up x2. Continue to follow MD plan of care and offer support and encouragement.
[2017-11-10 08:00] VITALS: BP 92/60
--- NOTE | 2017-11-10 08:00 | NUR ---
COWS 14/ CIWA 18 Withdrawal symptoms present as increased anxiety and agitation, lethargy, restlessness, warm clammy skin, stuffy nose, abdominal pain, constipation and irritability. Scheduled phenobarbital and Subutex to be given along with PRN's
[2017-11-10] MEDS: SERTRALINE HCL 100 MG TABLET PO SCH (08:17)
[2017-11-10] MEDS: TOPIRAMATE 25 MG TABLET PO SCH ×2 (08:17→21:38)
[2017-11-10] MEDS: MULTIVITAMINS,THERAPEUTIC TABLET PO SCH (08:17)
[2017-11-10] MEDS: PHENOBARBITAL 60 MG TABLET PO SCH ×4 (08:18→21:40)
[2017-11-10] MEDS: CLONIDINE HCL 0.1 MG TABLET PO PRN ×2 (08:57→16:31)
[2017-11-10] MEDS ORDERED: BUPRENORPHINE HCL 2 MG TAB.SUBL SL SCH (09:00)
--- NOTE | 2017-11-10 09:00 | NUR ---
PRN Clonidine 0.1mg PO given for increased anxiety/agitation Motrin 600mg PO given for muscle aches 05/30
--- NOTE | 2017-11-10 10:00 | NUR ---
PRN Reassess Patient states Clonidine has helped decrease her anxiety Motrin has moderately helped with muscle aches, pain level 3/10
[2017-11-10 12:00] VITALS: BP 146/95
--- NOTE | 2017-11-10 12:00 | NUR ---
COWS 14/ CIWA 17 Withdrawal symptoms present as increased anxiety and agitation, lethargy, restlessness, warm clammy skin, stuffy nose, abdominal pain, constipation and irritability. Scheduled phenobarbital given, PRN medications offered for S/S of withdrawal but pt refused
[2017-11-10] MEDS: BACLOFEN 10 MG TABLET PO PRN ×2 (14:43→22:09)
[2017-11-10] MEDS: BUPRENORPHINE HCL 2 MG TAB.SUBL SL SCH ×2 (14:43→21:40)
[2017-11-10] MEDS: ACIDOPHILUS/BULGARICUS CHEW TAB PO SCH ×2 (14:43→21:41)
--- NOTE | 2017-11-10 14:45 | NUR ---
PRN Baclofen 10mg PO given for complaints of muscle spasms, will reassess
--- NOTE | 2017-11-10 15:45 | NUR ---
PRN Reassess Patient states Baclofen was moderately effective in relieving muscle aches/spasms
[2017-11-10 16:00] VITALS: BP 100/61
--- NOTE | 2017-11-10 16:00 | NUR ---
COWS 16 CIWA 18 Withdrawal symptoms present as restlessness, fidgeting, lethargy, stuffy nose, emotionally volatile, mood swings, muscle aches and spasms. Scheduled Pheno and Subutex given within last hour, Baclofen PRN given.
--- NOTE | 2017-11-10 16:30 | NUR ---
PRN Clonidine 0.1mg PO given for complaints of increased anxiety/agitation
--- NOTE | 2017-11-10 17:30 | NUR ---
PRN Reassess Patient took a shower and states she feels better, clonidine has been effective in reducing anxiety.
--- NOTE | 2017-11-10 19:12 | NUR ---
End Of Shift Patient is a 32 yr old female who was admitted to [facility] on 11/07/17 for a medically supervised withdrawal from Benzodiazepines ( Klonopin, Xanax and Valium), Opiates ( heroin and Fentanyl),she has been placed on a 6 day Phenobarbital taper and 4 day Subutex taper. She has been emotionally volatile today, difficulty thinking clearly, teary , anxious, generalized body aches and restless. She is disheveled and unkempt. PRN medications given this shift : Clonidine x2 , Motrin and Baclofen. She had a fluid intake of 3000ML, 10 Voids and 0 BM, her last COWS 16 was and CIWA 18 @ 1600. She attended AM group therapy and is interacting with her peers. Continue to follow MD plan of care and offer support as needed. Endorsed to caustic cresylate shift superintendent nurse.
--- NOTE | 2017-11-10 19:30 | NUR ---
Start of shift Patient is a 32 year old female admitted on 11/07/2017. Patient was admitted for medically supervised withdrawal from Benzo's and Opiates. Patient is on a 6 day Phenobarbital taper and 4 day Subutex taper. Patients last COWS is 16 and CIWA 18. Patient had PRN Clonidine, Motrin and Baclofen during day shift. Patient is on Fall and Seizure precautions. Reviewed 2100 medications with patient and verbalized understanding of plan of care. Patient also requested Motrin and Baclofen along with 2100 medications. Patient is noted depressed, withdrawn, and disheveled. Safety measures in place, bed locked in low position, side rails up x2, call light within reach. Will continue to monitor.
[2017-11-10 20:00] VITALS: BP 97/51
--- NOTE | 2017-11-10 20:00 | NUR ---
CIWA and COWS Assessment Patient is presenting with s/s of withdrawal: tremors, pins and needles in fingers, body aches, stomach cramps, sweats and chills and anxiety. Patients COWS=11 and CIWA =13. Respirations are even and unlabored. Safety measure in place. Will continue to monitor.
[2017-11-10] MEDS: NICOTINE 21 MG/24HR PATCH TD SCH (21:38)
[2017-11-10] MEDS: PRAZOSIN HCL 1 MG CAPSULE PO SCH (21:39)
[2017-11-10] MEDS: NICOTINE POLACRILEX 4 MG GUM-PK OF TEN BC PRN (21:40)
[2017-11-10] MEDS: TRAZODONE 100 MG TABLET PO SCH (21:41)
--- NOTE | 2017-11-10 22:10 | NUR ---
PRN Motrin 600mg and Lioresal 10mg Patient is experiencing back and right arm pain. Gave patient PRN Motrin 600mg and Lioresal 10mg. Patient tolerated well and will continue to monitor for adverse effects. Safety measures in place, bed locked in low position, side rails up x2, call light within reach. Will continue to monitor.
--- NOTE | 2017-11-10 23:10 | NUR ---
PRN Motrin 600mg and Lioresal 10mg Reassessment Patient was noted in bed lying with eyes closed. Respirations are even and unlabored. Medication noted to be effective. Safety measures in place. Will continue to monitor.
[2017-11-11] VITALS: BP 92/55
--- NOTE | 2017-11-11 | NUR ---
CIWA and COWS Deferred Patient was noted in bed resting with eyes closed, breathing even and unlabored. Per protocol CIWA and COWS is to be assessed while awake. Safety measures in place. Will continue to monitor. Addendum: 11/11/17 at 0215 by BHAVIN CARTER RN Input twice by accident.
[2017-11-11 04:00] VITALS: BP 98/66
--- NOTE | 2017-11-11 04:00 | NUR ---
CIWA and COWS Deferred Patient was noted in bed resting with eyes closed, breathing even and unlabored. Per protocol CIWA and COWS is to be assessed while awake. Safety measures in place. Will continue to monitor.
--- NOTE | 2017-11-11 07:01 | NUR ---
End of shift Patient is a 32 year old female admitted on 11/07/2017. Patient was admitted for medically supervised withdrawal from Benzo's and Opiates. Patient is on a 6 day Phenobarbital taper and 4 day Subutex taper. Patients last COWS is 11 and CIWA 13. Patient had PRN Motrin and Baclofen during this shift. Patient also had nicotine patch and gum for smoking cessation. Patient is on Fall and Seizure precautions. Patient slept for 8 hours and total intake was 2,500ml. Patient voided x4 and had no bowel movements. Respirations are even and unlabored. Patients low blood pressure is her base line and charge nurse was notified. Safety measures in place, bed locked in low position, side rails up x2, call light within reach. Will endorse to day shift.
--- NOTE | 2017-11-11 07:25 | NUR ---
Start Of Shift: Patient is a 32 yr old female who was admitted to [facility] on 11/07/17 for a medically supervised withdrawal from Benzodiazepines ( Xanax, Valium, Klonopin) and Opiates ( Heroin IV and Fentanyl IV) also abused amphetamines and Cocaine, she has been placed on a 6 day Phenobarbital and 4 day Subutex taper. PRN Motrin and Baclofen were given on PM shift, her last COWS was 11 and CIWA 13 and she slept for 8 hours. She is in bed asleep at this time, breathing even and unlabored, side rails up x2. Continue to follow MD plan of care and offer support and encouragement.
[2017-11-11 08:00] VITALS: BP 100/60
--- NOTE | 2017-11-11 08:00 | NUR ---
COWS 12 CIWA 15 Withdrawal symptoms present as restlessness, fidgeting, lethargy, stuffy nose, emotionally volatile, mood swings, muscle aches and spasms. Scheduled Pheno and Subutex given, Clonidine and Baclofen PRN given.
[2017-11-11 08:05] LABS: *TRIC.VAG. NAA Positive (Negative)
[2017-11-11] MEDS: SERTRALINE HCL 100 MG TABLET PO SCH (08:09)
[2017-11-11] MEDS: BACLOFEN 10 MG TABLET PO PRN (08:09)
[2017-11-11] MEDS: MULTIVITAMINS,THERAPEUTIC TABLET PO SCH (08:09)
[2017-11-11] MEDS: TOPIRAMATE 25 MG TABLET PO SCH (08:09)
[2017-11-11] MEDS: CLONIDINE HCL 0.1 MG TABLET PO PRN ×2 (08:10→13:55)
[2017-11-11] MEDS: PHENOBARBITAL 60 MG TABLET PO SCH ×3 (08:10→20:59)
[2017-11-11] MEDS: BUPRENORPHINE HCL 2 MG TAB.SUBL SL SCH ×3 (08:10→21:00)
[2017-11-11] MEDS: ACIDOPHILUS/BULGARICUS CHEW TAB PO SCH ×2 (08:10→20:57)
[2017-11-11] MEDS: NICOTINE POLACRILEX 4 MG GUM-PK OF TEN BC PRN ×4 (08:10→16:48)
--- NOTE | 2017-11-11 08:10 | NUR ---
PRN Baclofen 20mg PO given for muscle aches Nicotine gum given per order
[2017-11-11] MEDS: NICOTINE 21 MG/24HR PATCH TD SCH ×2 (09:00→16:48)
--- NOTE | 2017-11-11 09:00 | NUR ---
Nicotine Patch Not applied, patch was applied last PM and is good for 24h
[2017-11-11 09:07] LABS: *GC NAA Positive (Negative)
--- NOTE | 2017-11-11 09:10 | NUR ---
PRN Reassess Baclofen effective for muscle aches Nicotine gum effective for smoking craving
--- NOTE | 2017-11-11 10:53 | NUR ---
PRN Nicotine gum given per order
--- NOTE | 2017-11-11 11:53 | NUR ---
PRN Reassess Nicotine gum effective , nicotine cravings reduced per patient
[2017-11-11 12:00] VITALS: BP 87/47
--- NOTE | 2017-11-11 12:00 | NUR ---
COWS 12 CIWA 14 Withdrawal symptoms present as restlessness, fidgeting, lethargy, stuffy nose, emotionally volatile, mood swings, muscle aches and spasms.
--- NOTE | 2017-11-11 13:57 | NUR ---
PRN Clonidine 0.1mg PO given for anxiety/agitation Nicotine gum 1 piece given for nicotine craving
[2017-11-11] MEDS ORDERED: AZITHROMYCIN 250 MG TABLET PO ONE ×3 (14:45→15:30)
[2017-11-11] MEDS ORDERED: CEFTRIAXONE 1 G VIAL IM SCH (14:45)
[2017-11-11] MEDS: DOXYCYCLINE HYCLATE 100 MG TABLET PO SCH ×2 (14:56→20:59)
--- NOTE | 2017-11-11 14:57 | NUR ---
PRN Reassess Patient states she feels less anxious
[2017-11-11] MEDS ORDERED: CEFTRIAXONE 500 MG VIAL IM ONE (15:30)
--- NOTE | 2017-11-11 16:00 | NUR ---
COWS 12 CIWA 14 Withdrawal symptoms present as restlessness, fidgeting, lethargy, stuffy nose, emotionally volatile, mood swings, muscle aches and spasms.
--- NOTE | 2017-11-11 16:47 | NUR ---
PRN Motrin 600mg PO given for pain 5/10 Nicotine gum given per request
[2017-11-11] MEDS: IBUPROFEN 600 MG TABLET PO PRN (16:57)
[2017-11-11 17:00] VITALS: BP 98/49
--- NOTE | 2017-11-11 17:47 | NUR ---
PRN Reassess Motrin effective, pain level 3/10
--- NOTE | 2017-11-11 19:30 | NUR ---
End Of Shift Patient is a 32 yr old female who was admitted to [facility] on 11/07/17 for a medically supervised withdrawal from Benzodiazepines ( Klonopin, Xanax and Valium), Opiates ( heroin and Fentanyl),she has been placed on a 6 day Phenobarbital taper and 4 day Subutex taper. She has been emotionally volatile today, difficulty thinking clearly, teary , anxious, generalized body aches and restless. She is disheveled and unkempt. PRN medications given this shift : Clonidine , Motrin, Nicotine patch/gum and Baclofen. She had a fluid intake of 2526ML, 3 Voids and 0 BM, her last COWS 12 was and CIWA 14 @ 1600. She attended AM group therapy and is interacting with her peers. Lab results showed Positive for Gonorrhea: Rocephin 250mg IM given, Zithromax 1000mg PO given and Docycycline. Continue to follow MD plan of care and offer support as needed. Endorsed to senior cognos developer nurse.
--- NOTE | 2017-11-11 19:30 | NUR ---
Start of shift note Patient is a 32 year old female admitted for Opiate/Benzodiazepine withdrawal. Patient is on 6 day Phenobarbital and 5 day Subutex taper. Patient did not require PRN medication. Last COWS 10 and CIWA 13. Patient alert and oriented x 4. Room messy, garbage around room, hoarding food and clothes thrown on the floor. Patient presents with flat affect, disheveled , racing thoughts and difficulty concentrating. Safety measures in place. Call light within reach. Will continue to monitor. Addendum: 11/12/17 at 0213 by ELVIN GONZALEZ LVN Last COWS 12 and CI 14.
[2017-11-11 20:00] VITALS: BP 104/60
--- NOTE | 2017-11-11 20:00 | NUR ---
COWS and CIWA assessment Patient presents with anxiety, restlessness, hot and cold sweats, abdominal cramping and generalized body aches. COWS 13 and CIWA 12.
[2017-11-11] MEDS: TRAZODONE 100 MG TABLET PO SCH (20:57)
[2017-11-11] MEDS: PRAZOSIN HCL 1 MG CAPSULE PO SCH (20:58)
[2017-11-11] MEDS: TOPIRAMATE 100 MG TABLET PO SCH (20:59)
[2017-11-11] MEDS ORDERED: TOPIRAMATE 25 MG TABLET PO SCH (21:00)
[2017-11-12] VITALS: BP 101/64
--- NOTE | 2017-11-12 | NUR ---
COWS and CIWA deferred Patient lying in bed with eyes closed. Respiration even and unlabored. Will continue to monitor.
[2017-11-12 04:00] VITALS: BP 100/64
--- NOTE | 2017-11-12 04:00 | NUR ---
COWS and CIWA deferred Patient lying in bed with eyes closed. Respiration even and unlabored. Will continue to monitor.
--- NOTE | 2017-11-12 07:27 | NUR ---
End of shift note Patient slept 8 hours. Fluid intake 1,100 ml. Voided x 2. No BM. Patient presented with flat affect, disheveled , racing thoughts and difficulty concentrating. Patient did not require PRN medication. Patient on oral antibiotic for positive gonorrhea with no adverse reaction noted. Safety measures in place. Call light within reach. Will continue to monitor. Last COWS 13 and CIWA 12.
[2017-11-12 08:00] VITALS: BP 98/60
--- NOTE | 2017-11-12 08:22 | NUR ---
START OF SHIFT: Received Pt A/O X 4. She presents with irritable mood and congruent affect. Poor eye contact noted. She reports body aches,sweats,chills,anxiety,irritability,restlessness and mild nausea. COWS 13 CIWA 14 Pheno/Subutex taper in progress to manage s/s of w/d. She states the detox meds are effective in reducing symptoms. Encouraged increased fluids to assist in facilitating detox process. Encouraged group attendance to improve coping skills and prevent relapse. Will continue to monitor and manage s/s of w/d.
[2017-11-12] MEDS: ACIDOPHILUS/BULGARICUS CHEW TAB PO SCH ×2 (08:58→21:00)
[2017-11-12] MEDS: SERTRALINE HCL 100 MG TABLET PO SCH (08:59)
[2017-11-12] MEDS: PHENOBARBITAL 60 MG TABLET PO SCH ×2 (08:59→20:35)
[2017-11-12] MEDS ORDERED: BUPRENORPHINE HCL 2 MG TAB.SUBL SL SCH (09:00)
[2017-11-12] MEDS: MULTIVITAMINS,THERAPEUTIC TABLET PO SCH (09:00)
[2017-11-12] MEDS: DOXYCYCLINE HYCLATE 100 MG TABLET PO SCH ×2 (09:00→20:35)
[2017-11-12] MEDS: TOPIRAMATE 100 MG TABLET PO SCH ×2 (09:01→20:35)
[2017-11-12] MEDS: NICOTINE 21 MG/24HR PATCH TD SCH (09:03)
[2017-11-12] MEDS: ONDANSETRON ODT 4 MG TAB.RAPDIS SL PRN (09:35)
--- NOTE | 2017-11-12 09:35 | NUR ---
PRN Zofran ODT given as pt reports N/V. Will monitor effectiveness of medication.
[2017-11-12] MEDS ORDERED: ONDANSETRON 4 MG/2 ML VIAL IM PRN (09:45)
--- NOTE | 2017-11-12 10:35 | NUR ---
PRN Zofran effective. Pt states the nausea subsided.
--- NOTE | 2017-11-12 11:45 | NUR ---
MD Communication: with new order for 2mg Subutex SL at 2100 and 2mg Subutex SL at 0900. Orders noted and carried out.
[2017-11-12 12:00] VITALS: BP 90/58
--- NOTE | 2017-11-12 12:10 | NUR ---
COWS 11 CIWA 14 She reports anxiety,sweats,chills,nausea,body aches and irritability.
[2017-11-12 16:00] VITALS: BP 95/60
[2017-11-12] MEDS: IBUPROFEN 600 MG TABLET PO PRN (17:33)
--- NOTE | 2017-11-12 18:54 | NUR ---
END OF SHIFT: Pt continues on Pheno/Subutex taper to manage s/s of w/d which include n/v,sweats,chills,body ache h/a and irritability. Last COWS 10 CIWA 9 Zofran PRN given and effective for n/v. She interacted with peers and attended groups. Will pass shift report to oncoming night nurse.
--- NOTE | 2017-11-12 19:15 | NUR ---
Start of Shift Note: Patient is a 32 y.o female admitted on 11/07/17 for medically supervised withdrawal from Klonopin, Xanax, Valium, Heroin, & Fentanyl. Patient also reported using Meth and Cocaine. Patient is alert & oriented x4. Patient appears with an anxious/irritable mood and guarded affect. She presents with sweating, chills, nausea, stomach cramps, anxiety, agitation, fine tremors, & generalized body aches. Pt on a Phenobarbital and Subutex taper and tolerating well. Last COWS 10 CIWA 9. Pt received PRN Zofran during day shift and was effective. Pt encourage to increase fluid intake. Explained to patient current plan of care of the night and medication regimen. Both side rails up. Bed in the lowest position. Call light within pts reach. Will continue to monitor patient.
[2017-11-12 20:00] VITALS: BP 98/61
--- NOTE | 2017-11-12 20:00 | NUR ---
Cows/Ciwa Assessment Patient appears with an anxious/irritable mood and guarded affect. She presents with sweating, chills, nausea, stomach cramps, anxiety, agitation, fine tremors, & generalized body aches. COWS 9 CIWA 9. Will continue to monitor.
[2017-11-12] MEDS: PRAZOSIN HCL 1 MG CAPSULE PO SCH ×2 (20:44→22:34)
[2017-11-12] MEDS ORDERED: BUPRENORPHINE HCL 2 MG TAB.SUBL SL ONE (21:00)
[2017-11-12] MEDS: TRAZODONE 100 MG TABLET PO SCH (22:35)
--- NOTE | 2017-11-13 | NUR ---
Vitals/Cows/Ciwa deferred Patient refused vitals at this time. Pt in bed with eyes close, pt calm and appears comfortable. no apparent distress noted. Unable to assess Ciwa at this time and will reassess when pt is awake. Will continue to monitor.
[2017-11-13 04:00] VITALS: BP 87/46
--- NOTE | 2017-11-13 04:00 | NUR ---
Cows/Ciwa deferred Pt in bed with eyes close, pt calm and appears comfortable. no apparent distress noted. Unable to assess Cows & Ciwa at this time and will reassess when pt is awake. Will continue to monitor.
--- NOTE | 2017-11-13 07:08 | NUR ---
End of Shift Note: Patient still asleep at this time. Pt remained alert & oriented x4. She presents with sweating, chills, nausea, stomach cramps, anxiety, agitation, fine tremors, & generalized body aches. Continues on Phenobarbital and Subutex and tolerating well. Last COWS 9 CIWA 9. No PRN medications received during day shift. Pts blood pressure normally runs low. Continue to closely monitor vitals. Encourage pt to increase fluid intake. All due medications given and all needs attended. Pt slept for a total of 7 hours. Fluid intake:1500 ml. Voided 7x with no BM noted. Safety measures in place. Will endorse pt to day shift nurse.
--- NOTE | 2017-11-13 07:55 | NUR ---
Start Of Shift / COWS 9 and CI 9 Received 32 y/o F admitted on 11/07/17 for medically supervised withdrawal from xanax, klonopin, valium, heroin, and fentanyl. Pt continues on a 6 day Phenobarbital and 5 day subutex taper; tolerating well. Pt is easily irritable, labile, anxious, c/o hot/cold flashes, restlessness, sweating, stomach cramps, generalized body aches, tremors are felt and pupils are larger than normal. Last COWS 9 and CI 9, slept 7 hrs. Encouraged pt to increase fluids as tolerated and to verbalize feelings about situation. Side rails upx2, bed in low position, call light within reach. Will continue to monitor.
[2017-11-13 08:00] VITALS: BP 114/63
[2017-11-13] MEDS: MULTIVITAMINS,THERAPEUTIC TABLET PO SCH (08:54)
[2017-11-13] MEDS: SERTRALINE HCL 100 MG TABLET PO SCH (08:54)
[2017-11-13] MEDS: DOXYCYCLINE HYCLATE 100 MG TABLET PO SCH ×2 (08:54→20:39)
[2017-11-13] MEDS: TOPIRAMATE 100 MG TABLET PO SCH ×2 (08:54→20:39)
[2017-11-13] MEDS: NICOTINE 21 MG/24HR PATCH TD SCH (08:57)
[2017-11-13] MEDS ORDERED: PHENOBARBITAL 60 MG TABLET PO SCH (09:00)
[2017-11-13] MEDS ORDERED: BUPRENORPHINE HCL 2 MG TAB.SUBL SL ONE (09:00)
[2017-11-13] MEDS: ONDANSETRON ODT 4 MG TAB.RAPDIS SL PRN (09:30)
--- NOTE | 2017-11-13 09:30 | NUR ---
PRN Bentyl 20 mg po and zofran 4 mg sl prns given for stomach cramps and nausea. Will monitor and reassess.
[2017-11-13] MEDS: ACIDOPHILUS/BULGARICUS CHEW TAB PO SCH ×2 (09:57→20:39)
--- NOTE | 2017-11-13 10:30 | NUR ---
Reassessment Pt reports meds as effective and nausea had ceased. Will continue to monitor.
[2017-11-13 11:00] VITALS: BP 90/62
--- NOTE | 2017-11-13 12:30 | NUR ---
COWS 10 and CIWA 11 Pt is easily irritable, labile, anxious, hyperactive, appears flushed, c/o nausea, intermittent hot/cold flashes, restlessness, sweating, stomach cramps, generalized body aches, tremors noted, and pupils are larger than normal. Encouraged pt to use deep breathing exercises to promote relaxation. Safety measures in place. Will continue to monitor.
[2017-11-13 12:40] VITALS: BP 90/62
--- NOTE | 2017-11-13 15:20 | NUR ---
Behavorial Note Pt was in the patio talking to other patients about things that are not following the rules. Educated pt and encouraged pt to follow rules. Pt was upset, hyperverbal, crying, but was able to be redirectable.
[2017-11-13] MEDS ORDERED: PRAZ1CAP2 PO (15:32)
[2017-11-13] MEDS ORDERED: ONDA4TAB11 SL (15:32)
[2017-11-13] MEDS ORDERED: CLON0.1T14 PO (15:32)
[2017-11-13] MEDS ORDERED: BACL10TA PO (15:32)
[2017-11-13] MEDS ORDERED: DOXY100T2 PO (15:32)
[2017-11-13] MEDS ORDERED: METH-406 PO (15:32)
[2017-11-13] MEDS ORDERED: HYDR-3895 PO (15:32)
[2017-11-13] MEDS: CLONIDINE HCL 0.1 MG TABLET PO PRN (15:40)
[2017-11-13] MEDS: NICOTINE POLACRILEX 4 MG GUM-PK OF TEN BC PRN ×2 (15:40→18:33)
--- NOTE | 2017-11-13 15:40 | NUR ---
PRN Clonidine 0.1 mg po prn given for increased anxiety, state of panic, nicotine cravings. Pt was upset crying about being put on patio restriction due to breaking the rules. Educated pt with unit rules. Encouraged pt to use deep breathing exercises to promote relaxation. Will monitor and reassess.
--- NOTE | 2017-11-13 16:10 | NUR ---
COWS 13 and CIWA 15 Pt is emotionally volitile, agitated, irritable, labile, anxious, hyperactive, appears flushed, c/o nausea, intermittent hot/cold flashes, restlessness, sweating, stomach cramps, generalized body aches, tremors noted, and pupils are larger than normal. Clonidine prn was given. Encouraged pt to use deep breathing exercises to promote relaxation. Safety measures in place. Will continue to monitor.
[2017-11-13 16:30] VITALS: BP 90/59
--- NOTE | 2017-11-13 19:15 | NUR ---
Start of Shift Note: Patient is a 32 y.o female admitted on 11/07/17 for medically supervised withdrawal from Klonopin, Xanax, Valium, Heroin, & Fentanyl. Patient also reported using Meth and Cocaine. Patient stable at this time. Blood pressure still noted on the low side per report. Pt completed her Phenobarbital and Subutex taper and is scheduled to be discharge tomorrow. Pt had some behavioral problems this morning and was really anxious per report. Last COWS 13 CIWA 15. Pt received PRN Zofran & Bentyl during day shift. Pt encourage to increase fluid intake. Explained to patient current plan of care of the night and medication regimen. Both side rails up. Bed in the lowest position. Call light within pts reach. Will continue to monitor patient.
--- NOTE | 2017-11-13 19:18 | NUR ---
End Of Shift Pt continues to present emotional voliatility, agitation, is hyperverbal. Pt has been put on VT for violating rules and was told to leave during group therapy. Last COWS 13 and CIWA 15 @1600. Zofran, bentyl, clonidine, nicotine gum prns given and were effective. Safety measures in place.
[2017-11-13 20:00] VITALS: BP 87/49
--- NOTE | 2017-11-13 20:00 | NUR ---
[facility] Assessment Patient is alert & oriented x4. Patient appears with an anxious/irritable mood and guarded affect. She presents with sweating, chills, stomach cramps, anxiety, irritability, fine tremors, & generalized body aches. COWS 6 [facility] 8 at this time. Addendum: 11/13/17 at 2153 by FESTUS SALGADO RN Addendum: CHAD/TARYN Assessment
[2017-11-13] MEDS: TRAZODONE 100 MG TABLET PO SCH (20:39)
[2017-11-13] MEDS: BACLOFEN 10 MG TABLET PO PRN (20:39)
[2017-11-13] MEDS: HYDROXYZINE PAMOATE 25 MG CAPSULE PO PRN (20:39)
--- NOTE | 2017-11-13 20:39 | NUR ---
PRN Baclofen & Vistaril Patient complains of generalized muscle aches and anxiety. PRN Baclofen and Vistaril given as ordered. Will monitor for effectiveness of medication.
[2017-11-13] MEDS: PRAZOSIN HCL 1 MG CAPSULE PO SCH (20:42)
--- NOTE | 2017-11-13 21:39 | NUR ---
PRN Reassessment Pt asleep in bed at this time. Pt appears comfortable and pt is in no apparent distress. No facial grimacing noted. Safety measures in place. Will continue to monitor patient.
[2017-11-13] MEDS ORDERED: NICOTINE 21 MG/24HR PATCH TD STA (23:27)
[2017-11-14] VITALS: BP 91/46
--- NOTE | 2017-11-14 | NUR ---
Cows/Ciwa Assessment Patient still asleep at this time and appears comfortable. No apparent distress noted at this time. Vitals noted WNL. Unable to assess Cows/ Ciwa at this time, will reassess scores when pt is awake.
--- NOTE | 2017-11-14 07:07 | NUR ---
End of Shift Note: Patient still asleep at this time. Patient is alert & oriented x4. She presented with sweating, chills, stomach cramps, anxiety, irritability, fine tremors, & generalized body aches. Completed her Subutex and Phenobarbital taper and she is scheduled to be discharge today. Last COWS 6 CIWA 8. She received PRN Vistaril and Baclofen and were effective. Still no BM noted. Offered Laxative and refused. Explained risk and benefit of not having BM but pt still refused. Continue to encourage pt to increase fluid intake. All due medications given and all needs attended. Pt slept for a total of 8 hours. Fluid intake:2274 ml. Voided 8x with no BM noted. Safety measures in place. Will endorse pt to day shift nurse.
[2017-11-14 08:00] VITALS: BP 98/60
--- NOTE | 2017-11-14 08:00 | NUR ---
START OF SHIFT Pt is a 32 yr old female, AA&Ox4. pt was admitted on 11/07/17 for Benzo/Opiate withdrawal and has completed a 6 day Phenobarbital taper and 4 day Subutex taper as ordered. Received report from jewelry drill operator nurse. Pt was given Baclofen PRN and Vistaril PRN during the night. Medication was effective. Pt slept for 8 hrs. Last COWS score was 6 and CIWA score was 8. Pt is currently c/o increase anxiety and is observed fidgety, hyperverbal and restlessness. Skin is intact, warm and moist to touch. COWS score was 8 and CIWA score was 7. Pt is to be discharged today, location is pending. Will continue to f/u. Safety precautions observed. Call light is within reach. Will continue to monitor.
[2017-11-14] MEDS: NICOTINE 21 MG/24HR PATCH TD SCH (09:15)
[2017-11-14] MEDS: DOXYCYCLINE HYCLATE 100 MG TABLET PO SCH (09:15)
[2017-11-14] MEDS: SERTRALINE HCL 100 MG TABLET PO SCH (09:15)
[2017-11-14] MEDS: ACIDOPHILUS/BULGARICUS CHEW TAB PO SCH (09:16)
[2017-11-14] MEDS: MULTIVITAMINS,THERAPEUTIC TABLET PO SCH (09:16)
[2017-11-14] MEDS: ONDANSETRON ODT 4 MG TAB.RAPDIS SL PRN (09:16)
[2017-11-14] MEDS: TOPIRAMATE 100 MG TABLET PO SCH (09:16)
--- NOTE | 2017-11-14 09:16 | NUR ---
PRN GIVEN Pt was c/o feeling nauseous when taking the Doxycycline. Pt was given Zofran 4mg SL PRN as order. Medication was manuel well. Encouraged increase fluid intake. Will continue to monitor.
[2017-11-14] MEDS: CLONIDINE HCL 0.1 MG TABLET PO PRN (09:28)
--- NOTE | 2017-11-14 09:28 | NUR ---
PRN GIVEN pt was c/o increase anxiety. Clonidine 0.1mg PO PRN was given as ordered. Encourage increase fluid intake. Will continue to monitor.
--- NOTE | 2017-11-14 10:28 | NUR ---
PRN RE-ASSESSMENT Zofran 4mg SL PRN and Clonidine 0.1mg PO PRN was effective. Pt denies any n/v. Pt continues to c/o anxiety but is able to cope with anxiety level.
[2017-11-14 12:00] VITALS: BP 100/66
[2017-11-14] MEDS: NICOTINE POLACRILEX 4 MG GUM-PK OF TEN BC PRN (12:06)
--- NOTE | 2017-11-14 12:08 | NUR ---
PRN GIVEN Pt was requesting for Nicotine Gum for smoking cessation. Pt was given Nicotine Gum 4mg as ordered. Will continue to monitor
--- NOTE | 2017-11-14 15:20 | NUR ---
DISCHARGE NOTE Pt is a 32 year female, AA&Ox4. Pt was admitted on 11/07/18 for Benzo/Opiate withdrawal and completed a 6 day Phenobarbital taper and 4 day Subutex taper as ordered. Pt has been cooperative with medication regimen and plan of care. Pt was c/o anxiety but was able to cope with anxiety level. No SI/HI noted. Pt was educated on discharge summary and prescriptions. Pt was able to verbalize understanding. Pt was discharged off the unit at 1517 in stable condition. Pt was discharged to [facility]. Pt left with all belongings and valuables. No home medications was brought.
[2017-11-15] MEDS ORDERED: 6 DAY PHENOBARBITAL TAPER -SERENITY PROTOCOL PO PRN (09:00)
== END 2017-11-14 15:17 | disposition other institution (70) | DRG 895 ==
LOC: SRC 22:03
PROVIDERS: ADMIT Family Medicine Addiction Medicine; ATTEND Family Medicine Addiction Medicine
PROC: HZ2ZZZZ Detoxification Services for Substance Abuse Treatment (ICD-10-PCS; principal; 2017-11-07)
PROC: HZ31ZZZ Individual Counseling for Substance Abuse Treatment, Behavioral (ICD-10-PCS; 2017-11-09)
PROC: HZ41ZZZ Group Counseling for Substance Abuse Treatment, Behavioral (ICD-10-PCS; 2017-11-11)
DX: F11.23 Opioid dependence with withdrawal (principal); A54.02 Gonococcal vulvovaginitis, unspecified; F13.230 Sedative, hypnotic or anxiolytic dependence with withdrawal, uncomplicated; A59.01 Trichomonal vulvovaginitis; G47.00 Insomnia, unspecified; F90.9 Attention-deficit hyperactivity disorder, unspecified type; F17.210 Nicotine dependence, cigarettes, uncomplicated; F41.1 Generalized anxiety disorder; Z81.1 Family history of alcohol abuse and dependence; Z82.49 Family history of ischemic heart disease and other diseases of the circulatory system; Z59.0 Homelessness; A74.9 Chlamydial infection, unspecified; R01.1 Cardiac murmur, unspecified; F43.10 Post-traumatic stress disorder, unspecified; T76.21XS Adult sexual abuse, suspected, sequela; Z91.89 Other specified personal risk factors, not elsewhere classified; R56.9 Unspecified convulsions; F32.9 Major depressive disorder, single episode, unspecified
CPT/HCPCS: 36415; 70030-TC; 80307; 80324; 80346; 80361; 83735; 84443; 84703; 85025; 86592; 86705; 86803; 87210; 87340; 87491; 87806; G0480; J0696; J8499; Q0144; Q0162; Q0163